=== PATIENT | male | born 1980 | race Caucasian/White ===

== ENCOUNTER 2017-12-13 12:47 | Outpatient (CLI) | payer OTHER ==
[2014-03-29 06:03] VITALS: O2SAT 97
== END 2017-12-13 12:48 | disposition home or self-care (01) ==
LOC: CONVCARE 12:47
PROVIDERS: ATTEND Orthopaedic Surgery
DX: M25.571 Pain in right ankle and joints of right foot (principal)
CPT/HCPCS: 70200; 73630; 73718